=== PATIENT | female | born 1990 | race Two or more races ===

== ENCOUNTER 2017-07-29 08:47 | Emergency (ER) | payer MEDICAID ==
[~2017-07-29] VITALS: Ht 157.5 cm; Wt 66.7 kg
[~2017-07-29 08:47] MED LIST: NORPTMEDS CO
[2017-07-29 08:56] VITALS: BP 124/78
== END 2017-07-29 09:09 | disposition home or self-care (01) ==
LOC: ER 08:47
DX: J02.9 Acute pharyngitis, unspecified (principal)